=== PATIENT | male | born 1990 | race Caucasian/White ===

== ENCOUNTER 2019-08-26 11:14 | Inpatient (IN) | payer OTHER ==
[~2019-08-26] VITALS: Ht 180.3 cm; Wt 63.0 kg
--- NOTE | 2019-08-26 12:33 | NUR ---
Patient takes no chronic medications
--- NOTE | 2019-08-26 13:06 | NUR ---
PT TO FLOOR WITH AIR CREW. SCOOTED OVER TO BED HIMSELF. RATES PAIN 8\10 GIVEN TORADOL. BEDSIDE XRAY DONE. BOLUS RUNNING.
--- NOTE | 2019-08-26 13:48 | NUR ---
PATIENT RESTING IN BED. VITAL SIGNS AND I&O DONE. CALL LIGHT WITHIN REACH. NO OTHER NEEDS AT THIS TIME
--- NOTE | 2019-08-26 14:30 | NUR ---
PT GIVEN INSTRUCTIONS ON WIPE DOWN. LAB IN TO DRAW CULTURES. PT RATES PAIN 4\10 AFTER TORADOL. SECOND BOLUS RUNNING. AB FINISHED.
--- NOTE | 2019-08-26 14:49 | NUR ---
PT OFF FLOOR WITH ZOIE SLADE.
--- NOTE | 2019-08-26 16:38 | NUR ---
08/26/19 1638 Jered Marie [id number] ARRIVES WITH ETT TUBE IN BUT BREATHING ON HIS OWN,
--- NOTE | 2019-08-26 17:02 | NUR ---
PT TO FLOOR VIA STRETCHER. PT ASLEEP BUT EASILY AROUSABLE. SLIGHTLY CONFUSED. TEARFUL.
--- NOTE | 2019-08-26 18:05 | NUR ---
PATIENT RESTING IN BED. VISITOR IN ROOM. VITAL SIGNS DONE BY RN. I&O DONE. JESANTOO GIVEN. CALL LIGHT WITHIN REACH. NO OTHER NEEDS AT THIS TIME
--- NOTE | 2019-08-26 19:00 | NUR ---
SHIFT REPORT RECEIVED FROM DAYSHIFT ZOIE ULLOA AT BEDSIDE. PT AWAKE AND RESTING IN BED, LAP SITES X3 WITH SCANT DRY SEROSANGUINEOUS DRAINAGE NOTED. PT DENIES NEEDS, CALL LIGHT IN REACH.
--- NOTE | 2019-08-26 19:25 | NUR ---
POST-OP VSS, PT RESTING IN BED. EDUCATION GIVEN ON CURRENT CLEAR LIQUID DIET. NO FURTHER NEEDS, CALL LIGHT IN REACH.
--- NOTE | 2019-08-26 21:15 | NUR ---
ASSESSMENT COMPLETE, SCHEDULED MEDS GIVEN (SEE EMAR). LAP SITES X3 NOTED, SITES UNCHANGED. PT REPORTS TOLERABLE 2-3/10 PAIN, DENIES NAUSEA. SCD'S IN PLACE, DENIES FURTHER NEEDS. CALL LIGHT IN REACH.
--- NOTE | 2019-08-26 22:30 | NUR ---
SCHEDULED IV ABX INFUSING, SITE WNL. JELLO AND CHICKEN BROTH PROVIDED PER REQUEST, PT DENIES NAUSEA. ABLE TO VOID 50MLS AT THIS TIME, WILL MONITOR. GIRLFRIEND IN ROOM, DENIES FURTHER NEEDS, CALL LIGHT IN REACH.
--- NOTE | 2019-08-26 23:09 | NUR ---
PT RESTING IN BED, AWAKE. ATTEMPTING TO VOID VIA URINAL. DENIES NEEDS OR CONCERNS. CALL LIGHT IN REACH.
--- NOTE | 2019-08-27 00:14 | NUR ---
PT VOIDED 150MLS CLEAR YELLOW URINE, IV ABX INFUSING. SITE REMAINS WNL. PT DENIES NEEDS OR CONCERNS. CALL LIGHT IN REACH.
--- NOTE | 2019-08-27 02:03 | NUR ---
ASSESSMENT COMPLETE, NO NEW CHANGES OR CONCERNS. PT AWOKE EASILY TO VOICE, DENIES PAIN AT REST REPORTS TOELRABLE 2/10 PAIN WITH MOVEMENT. SCD'S IN PLACE. VSS, NO CHANGE IN LAP SITES. CPOX IN PLACE. JELLO PROVIDED PER REQUEST. NO FURTHER NEEDS, CALL LIGHT IN REACH.
--- NOTE | 2019-08-27 03:12 | NUR ---
PT AWAKE AND RESTING IN BED, DENIES NEEDS. CALL LIGHT IN REACH.
--- NOTE | 2019-08-27 04:44 | NUR ---
PT AWAKE AND RESTING IN BED, DENIES NEEDS. CALL LIGHT IN REACH.
--- NOTE | 2019-08-27 05:37 | NUR ---
VSS AND I&O'S DONE. PT UP SBA AND WALKED HALF LOOP IN HALLWAY, TOLERATED WELL. PREMEDICATED WITH PRN TORADOL FOR 4/10 PAIN. NO FURTHER NEEDS, CALL LIGHT IN REACH.
--- NOTE | 2019-08-27 06:20 | NUR ---
SCHEDULED IV ABX INFUSING, SEE EMAR. PT DENIES FURTHER NEEDS, IV SITE WNL. CALL LIGHT IN REACH.
--- NOTE | 2019-08-27 08:28 | NUR ---
PT WOKE EASILY FOR ASSESSMENT, DENIES NAUSEA, STATES HE IS PAINFUL WHEN MOVES MUCH BUT COMFORTABLE AT REST, ASKED TO SLEEP A BIT LONGER.
--- NOTE | 2019-08-27 10:06 | NUR ---
PATIENT SLEEPING. GIRLFRIEND IN ROOM. I&O DONE. PATIENT DID NOT VOID OR EAT DURING THIS PERIOD. RN NOTIFIED. CALL LIGHT WITHIN REACH. NO OTHER NEEDS AT THIS TIME
--- NOTE | 2019-08-27 13:17 | NUR ---
PATIENT SLEEPY IN BED. GIRLFRIEND IN ROOM. VITAL SIGNS AND I&O DONE. PATIENT DID NOT VOID DURING THIS PERIOD. RN NOTIFIED. CALL LIGHT WITHIN REACH. NO OTHER NEEDS AT THIS TIME
--- NOTE | 2019-08-27 13:51 | NUR ---
FOLLOW UP TO CREDIT UNION TELLER REPORTING PT WITH NO VOID, SPOKE TO PT AND GIRLFRIEND AND HE STATED HE DID VOID BUT FORGOT TO USE URINAL AFTER WALKING, STATED HE WOULD MAKE SURE HE DID FROM NOW ON. DENIES ANY NEEDS IN GOOD SPIRITS.
--- NOTE | 2019-08-27 14:04 | NUR ---
PT IN DARKENED RM, AWAKES TO VOICE. BASICALLY, PT GAVE ME HAND GESTURE ANSWERS TO MY QUESTIONS. GIRL FRIEND JANA WOULD ANSWER MOSTLY FOR PT. ENLIGHTENED JANA REGARDING VISITATION. PLANNED TO HEAD TO [place] FOR LUNCH. PT HAD NOT EATEN ANYTHING YET. WILL HAVE SOLID FOOD FOR LUNCH-WILL DETERMINE DC. GAVE BLESSING, WILL FOLLLOW NEEDED
--- NOTE | 2019-08-27 15:00 | NUR ---
ATE 50% OF LUNCH, TAKING PO FLUIDS WELL. UP TO BATHROOM INDEP. GIRLFRIEND BACK IN ROOM, WATCHING TV.
[2019-08-27] MEDS ORDERED: METRONIDAZOLE250 MG PO (16:00)
[2019-08-27] MEDS ORDERED: FAMOTIDINE20 MG PO (16:00)
[2019-08-27] MEDS ORDERED: CIPROFLOXACIN500 MG PO (16:00)
[2019-08-27] MEDS ORDERED: MOTRIN IB200 M1 PO (16:01)
[2019-08-27] MEDS ORDERED: MAPAP500 MG PO (16:02)
[2019-08-27] MEDS ORDERED: OXYCODONE HCL5 MG PO (16:03)
--- NOTE | 2019-08-27 16:10 | NUR ---
DR MUNGUIA IN TO SEE PT, DISCHARGE TO HOME ORDERS NOTED.
--- NOTE | 2019-08-27 16:38 | HP ---
[facility] [address], [place] [address] Signed ADMISSION DATE: 08/26/2019 REASON FOR ADMISSION: Acute abdomen. HISTORY OF PRESENT ILLNESS: This 29-year-old white man began having rather severe right-sided abdominal pain approximately 3:00 a.m. He presented to the emergency room at [place], [place], was evaluated by Dr. Dajuan Bella at approximately 11:00 a.m. His pain was severe and accompanied with rising and fair amount of drama. He had associated symptoms of nausea and vomiting several times through the night and any attempt at ingestion of water was met with regurgitation. His evaluation in [place] included a CT scan of the abdomen which showed no sign of acute appendicitis so that was the initial clinical diagnosis. He was noted to have an elevated serum lactate of 6.7 (normal up to 2.2). He was afebrile with a temperature 97.8, heart rate initially of 126, O2 saturations 98% on room air. The patient is extremely thin and the findings on the CT scan are confounded by lack of intraabdominal fat. Evaluation included a urinalysis, which was essentially normal except for 3+ ketones. His serum glucose was 82. He had blood in urine considered 1+. There was no sign of hydroureter on the CT scan. His white cell count was , neutrophils 84. His Chem profile showed elevated sodium of 147, potassium of 4.3, CO2 of 17, glucose of 82, as mentioned, creatinine of 0.9. Liver enzymes normal. Serum calcium elevated slightly at 10.3. Creatine kinase of 459 (normal to 170). He was accepted in transport for surgical evaluation. PAST MEDICAL HISTORY: Notable for a head trauma in the past in 2019, for which CT scan was negative. He denies any chronic or ongoing medical problems. SOCIAL HISTORY: He is single. His girlfriend is in [place] and that is the reason he was in [place] in the nutrition consultant hours. He works at [employer] as a cook. He lives in [place]. He lives alone. Electronically Signed By: ANA MUNGUIA MD 08/27/19 1638 PATIENT NAME: DIETER BULL HISTORY AND PHYSICAL DATE OF : [birth year] REPORT #: [id number] PHYSICIAN: ANA MUNGUIA MD PCP: NO PRIMARY CARE PHYSICIAN REPORT IS CONFIDENTIAL AND NOT TO BE RELEASED WITHOUT AUTHORIZATION [facility] [address], [place] [address] Signed REVIEW OF SYSTEMS: He denies any chest or neck pain. His pain is mostly right-sided and diffuse and severe. He denies any prior history of peptic ulcer disease. PHYSICAL EXAMINATION: GENERAL: Very thin white man, who looks to be in extreme distress. HEENT: He has very dry mucous membranes. Trachea is midline. He has no crepitus of the neck. CHEST: Shows mild tachypnea. ABDOMEN: Quite firm. Tenderness is noted throughout. EXTREMITIES: Show no petechiae, clubbing, or cyanosis. LAB STUDIES: As previously reported. Chest x-ray has been ordered here to assess for free air. ASSESSMENT: The patient has abdominal pain far in excess what I would expect for appendicitis and although, I have not reviewed the CT scan, it has been reported as normal as interpreted by Dr. Madrid. The lack of fat due to his thin body habitus obscures tissue planes making diagnosis even of appendicitis challenging. His symptoms are far more suggestive of perforated ulcer to me, but a chest x-ray is pending and will additionally review the CT scan more fully when loaded into our system. We will initiate fluid infusion to include lactated Ringer's solution immediately and he will be started on meropenem broad-spectrum antibiotic 1 g IV. A lactate level will be checked per protocol for sepsis. Most likely he will require exploration of the abdomen either laparoscopically or otherwise. I discussed all this with the patient and he understands and agrees. Ana Munguia MD JM/MODL /[id number] Electronically Signed By: ANA MUNGUIA MD 08/27/19 1638 PATIENT NAME: DIETER BULL HISTORY AND PHYSICAL DATE OF : [birth year] REPORT #: [id number] PHYSICIAN: ANA MUNGUIA MD PCP: NO PRIMARY CARE PHYSICIAN REPORT IS CONFIDENTIAL AND NOT TO BE RELEASED WITHOUT AUTHORIZATION [facility] [address] [place] [address] Signed cc: Dr. Dajuan Bella Copies: ~ Electronically Signed By: ANA MUNGUIA MD 08/27/19 1638 PATIENT NAME: DIETER BULL HISTORY AND PHYSICAL DATE OF : [birth year] REPORT #: [id number] PHYSICIAN: ANA MUNGUIA MD PCP: NO PRIMARY CARE PHYSICIAN REPORT IS CONFIDENTIAL AND NOT TO BE RELEASED WITHOUT AUTHORIZATION
--- NOTE | 2019-08-27 16:38 | OR ---
[facility] [address], [place] [address] Signed DATE OF OPERATION: 08/26/2019 SURGEON: Ana Munguia MD PREOPERATIVE DIAGNOSES: 1. Acute abdomen, severe abdominal pain and tenderness. 2. Elevated lactic acid, creatine kinase and elevated white count. POSTOPERATIVE DIAGNOSES: 1. No findings in abdomen of acute process; mesenteric adenopathy. 2. Submental inflammatory focus (chin area) without purulence. PROCEDURES: 1. Exploratory laparoscopy. 2. Laparoscopic appendectomy. 3. Laparoscopic mesenteric lymph node biopsy. 4. Laparoscopic lavage with collection of fluid for Gram stain and culture. ANESTHESIA: General endotracheal; Yovany Jose, MECHANICAL SYSTEM TECHNICIAN, and local 10 mL of 0.25% Marcaine with epinephrine. INDICATION: This is a 29-year-old very thin white man is referred emergently by Dr. Bella of [place], [place]. The patient lives in [place], though he was visiting [place] to his girlfriend's house. He began having severe abdominal pain approximately 3 a.m. in the morning. The patient denies any drug use and evaluation in the mid morning by Dr. Bella included findings showing severe peritonitis suggestive of appendicitis. A CT scan was performed, which showed no sign of acute process. Differentiation of the appendix was not forthcoming as he has very thin and has essentially no fat planes. He was noted to have an elevated lactic acid of 6.9 [place] [address]. Liver enzymes were normal. Urinalysis showed 1+ blood. There is no sign of hydroureter on the CT scan. He was transferred and received for consideration of surgical abdomen. He was noted to have nonfocal tenderness and right-sided abdominal pain complaints. His amylase and lipase levels were found to be normal. A lactic acid level was repeated and found to be 2.2. A chest x-ray was performed showing no infiltrate and no sign of free air. He did have improvement of his pain with Toradol intravenously administered and he was administered broad-spectrum antibiotic upon arrival (meropenem). Uncertain as to his diagnosis, I have recommended laparoscopy and probable appendectomy and other indicated procedures. Electronically Signed By: ANA MUNGUIA MD 08/27/19 1638 PATIENT NAME: DIETER BULL OPERATIVE REPORT DATE OF : [birth year] REPORT #: [id number] PHYSICIAN: ANA MUNGUIA MD PCP: NO PRIMARY CARE PHYSICIAN REPORT IS CONFIDENTIAL AND NOT TO BE RELEASED WITHOUT AUTHORIZATION [facility] [address], [place] [address] Signed Additional note, he has an erythematous skin lesion in the submental area without sign of purulence. The patient attributes this to dental problems, though oral examination shows no sign of abscess or tooth caries at least corresponding to this area in the mandible. The patient understands the risks of bleeding, infection, failure of diagnosis, misdiagnosis, and need for other indicated procedures including open surgery and wishes to proceed. FINDINGS: He had no sign of generalized peritonitis, purulence or sign of perforated viscus. There was no sign of small-bowel obstruction. The small bowel was normal from the ligament of Treitz to the terminal ileum. There were mesenteric lymph nodes that were enlarged in the region of the right mesocolon and ileocolic area. A automobile sales representative node was excised. Appendix itself was soft, nondilated, and not acutely inflamed. The right colon, transverse, and sigmoidal areas of colon showed no sign of inflammation. There was no creeping fat associated with the small bowel and retroperitoneum had no evidence of inflammatory focus or hemorrhage. The right kidney was manipulated with an instrument and appeared to have normal contour. The gallbladder was normal though mildly distended. The liver was normal. There was no sign of perforated duodenal ulcer or gastric ulcer. In addition to mesenteric lymph node biopsy and appendectomy, peritoneal lavage was undertaken and fluid obtained for Gram stain and culture. DESCRIPTION OF PROCEDURE: The patient was brought to the operating room and given a general endotracheal anesthetic. He voided immediately prior to operation and therefore, Beckford catheter was not placed. His left arm was placed at the side. Preoperative antibiotic meropenem had been administered already. The abdomen was clipped and prepared with a chlorhexidine solution and draped sterilely. An infraumbilical incision was made and the abdomen entered without problem. He had a thin abdominal wall. Pneumoperitoneum was achieved to a level of 14 mmHg of carbon dioxide gas. Intraabdominal inspection showed no sign of ascites, carcinomatosis, purulence or perforated viscus. The appendix was obscured from view. The cecum appeared normal. There were some adhesions that were normal associated with right colon. The liver appeared normal. The gallbladder was obscured from view. An epigastric 12 mm port was placed and a camera placed to that site. Single hand manipulation allowed for visualization of the appendix which appeared thin, nondilated, and not acutely inflamed. An additional right lower quadrant 5 mm trocar was placed and two-hand manipulation undertaken showing the appendix essentially to be normal. As per preoperative discussion, appendectomy was anticipated whether the Electronically Signed By: ANA MUNGUIA MD 08/27/19 1638 PATIENT NAME: DIETER BULL OPERATIVE REPORT DATE OF : [birth year] REPORT #: [id number] PHYSICIAN: ANA MUNGUIA MD PCP: NO PRIMARY CARE PHYSICIAN REPORT IS CONFIDENTIAL AND NOT TO BE RELEASED WITHOUT AUTHORIZATION [facility] [address], [place] [address] Signed appendix appeared normal or not. The terminal ileum appeared normal as noted by the antimesenteric fat pad of tree. The small bowel was run from the terminal ileum more proximally as far as possible showing no sign of Meckel's diverticulum, creeping fat to suggest inflammatory bowel disease nor sign of perforation, duplication, or other problem. There was some mesenteric adenopathy of the ileocolic mesentery. This was manipulated gently. A lymph node was identified and the peritoneum overlying was incised and the mesenteric lymph node dissected free with meticulous care excising it completely. It measured nearly 2 cm in size. It was extracted through the port and passed for pathology. There was no evidence of perforated viscus in the region of the duodenum, the gallbladder, though mildly distended and not acutely inflamed, liver was normal. There was no sign of perforated gastric or duodenal ulcer. Attention was turned towards the appendix. The appendix was elevated and a window created between the appendix and the cecum with blunt electrocautery dissection. An Endo-SAM stapling device was used to transect the appendix at its base. The mesentery was then transected similarly with good hemostatic effect. The appendix was withdrawn into the trocar sheath and extracted and passed for pathology. Reinspection throughout the abdomen was undertaken showing the mesenteric lymph node biopsy site to be hemostatic. The sigmoid colon was carefully examined and found to have no sign of diverticulitis or inflammation, the pelvis appeared normal otherwise. The retroperitoneum was examined by reflecting the cecum as well as the hepatic flexure. The right kidney was easily palpated with the instruments and appeared to have a normal contour. No sign of retroperitoneal hematoma or abscess. Peritoneal lavage was undertaken with saline solution and excess fluid suctioned free in a portion sent for Gram stain and culture. There were no acute findings other than the mesenteric adenopathy that would account for his pain and no further intervention was deemed warranted at this point. The trocars removed under direct visualization showing no sign of bleeding. The infraumbilical fascial incision was reapproximated with interrupted 0 Vicryl suture. A 10 mL of 0.25% Marcaine with epinephrine injected locally in each trocar site. The skin was closed with interrupted 3-0 Vicryl. Steri-Strips were applied. He was extubated and transferred to the recovery room in good condition having suffered no complications. Sponge, needle, and instrument counts were reported as correct x3. There remains enigmatic as to the source of his severe abdominal pain, elevated creatine kinase, low-grade hematuria, elevated lactic acid level and white count. Nonsurgical conditions this setting might include black spider bite, though that was not reported by the patient or others. We will review this further with the patient. Electronically Signed By: ANA MUNGUIA MD 08/27/19 1638 PATIENT NAME: DIETER BULL OPERATIVE REPORT DATE OF : [birth year] REPORT #: [id number] PHYSICIAN: ANA MUNGUIA MD PCP: NO PRIMARY CARE PHYSICIAN REPORT IS CONFIDENTIAL AND NOT TO BE RELEASED WITHOUT AUTHORIZATION [address] [address] Signed Of note, an erythematous skin lesion in the submental area associated with his avelar, did not appear typical of a spider bite or other bite, but rather a folliculitis and not with apparent abscess formation. Further investigation as the enigmatic source of his signs and symptoms will be forthcoming. MD DEJA Monroy/MODL /[id number] cc: Dr. Dajuan Bella Copies: ~ Electronically Signed By: ANA MUNGUIA MD 08/27/19 1638 PATIENT NAME: DIETER BULL OPERATIVE REPORT DATE OF : [birth year] REPORT #: [id number] PHYSICIAN: ANA MUNGUIA MD PCP: NO PRIMARY CARE PHYSICIAN REPORT IS CONFIDENTIAL AND NOT TO BE RELEASED WITHOUT AUTHORIZATION
--- NOTE | 2019-08-27 16:41 | NUR ---
PATIENT RESTING IN BED. RN AND GIRLFRIEND IN ROOM. THE FINAL VITAL SIGNS WERE OBTAINED PRIOR TO DISCHARGE FROM THE UNIT.
--- NOTE | 2019-08-27 16:46 | NUR ---
DISCHARGE INSTRUCTION GIVEN TO PATIENT, VERBALIZES UNDERSTANDING OF MEDICATIONS AND FOLLOW UP APPOINTMENT, DENIES QUESTIONS OR CONCERNS.
--- NOTE | 2019-08-27 17:19 | NUR ---
IV TAKEN OUT UPON RN REQUEST. CATH IN TACAT AND LOOKED GOOD, RN NOTIFIED.
--- NOTE | 2019-08-31 16:15 | PATH ---
[facility] [address] [place], [place] [address] Signed SPECIMEN(S): A APPENDIX SPECIMEN(S): B LYMPH NODE BIOPSY SPECIMEN SOURCE: A. APPENDIX B. LYMPH NODE BIOPSY CLINICAL HISTORY: Abdominal pain. FINAL PATHOLOGIC DIAGNOSIS: A. Appendix, appendectomy: - Fibrous obliteration of distal appendiceal lumen. - No evidence of appendicitis. B. Mesenteric lymph node, excision: - Benign reactive lymph node with progressive transformation of germinal center. - Negative for malignancy. LJA:NA:cml:vlg:C2NR MICROSCOPIC EXAMINATION: A. Histologic sections of all submitted blocks are examined by light microscopy. These findings, together with the gross examination, support the pathologic diagnosis. B. Immunohistochemical stains are performed (with appropriate reactive controls) and show the following results: CD20: Positive in many follicles showing normal pattern of distribution. CD3: Positive in T lymphocytes showing normal distribution. BCL2: Negative in reactive germinal center, positive in many T lymphocytes. BCL6: Highlights many germinal centers of follicles with normal pattern and distribution. CD15: Highlights scattered leukocytes, negative for large atypical cells. CD30: Positive in scattered immunoblasts, negative for large atypical cells. ANGELA.1: Shows normal distribution of B cells within germinal centers, negative for large atypical cells. NA:vlg GROSS DESCRIPTION: Two specimens are received in two containers, labeled "WK." A. The specimen, labeled "WK," and designated on the requisition "appendix," is received in formalin and consists of PATIENT NAME: DIETER BULL II PATHOLOGY DATE OF : [birth year] REPORT #: [id number] PHYSICIAN: BLAYNE JANE PCP: NO PRIMARY CARE PHYSICIAN REPORT IS CONFIDENTIAL AND NOT TO BE RELEASED WITHOUT AUTHORIZATION [facility] [address], [place] [address] Signed Specimen: Appendix with mesoappendix. Dimensions: 5.6 x 2.5 x 0.7 cm. Serosa: Villalba-burgos to hemorrhagic. Perforation: Not grossly identified. Inking: Staple line is inked black. Mucosa: Villalba-burgos to hemorrhagic. Fecalith: Not grossly identified. Additional: None. Hull Sorter sections are submitted in cassette (A1). B. The specimen, labeled "WK," and designated on the requisition "mesenteric lymph node," is received in formalin and consists of one previously cut/slightly disrupted, pink-burgos possible lymph node (1.7 x 1.4 x 0.5 cm). The specimen is serially sectioned to reveal a pink-burgos to white-burgos cut surface. The specimen is submitted entirely in cassette B1. AC (under the direct supervision of a pathologist) The Gross Description was prepared using a voice recognition system. The report was reviewed for accuracy; however, sound-alike word errors, addition and/or deletions may occur. If there is any question about this report, please contact Client Services. ADDITIONAL NOTES: Immunohistochemical and/or in situ hybridization studies were performed on this case with the appropriate positive controls that react as expected. This test was developed and its performance characteristics determined by [facility]. It has not been cleared or approved by the U.S. Food and Drug Administration. The FDA has determined that such clearance or approval is not necessary. This test is used for clinical purposes. It should not be regarded as investigational or for research. [facility] is certified under the Clinical Laboratory Improvement Amendments of 1988 (CLIA) as qualified to perform high complexity clinical laboratory testing. PERFORMING LABORATORY: The technical component was performed by [facility], [address] [place] [address] (Head Grease Maker: Martha Toussaint MD; CLIA# [id number]). [facility], [address] [address] (CLIA# [id number]). [facility], [address] [place] [address] (Head Grease Maker: Lopez PATIENT NAME: DIETER BULL Luis LEMON PATHOLOGY DATE OF : [birth year] REPORT #: [id number] PHYSICIAN: BLAYNE PATHOLOGY PCP: NO PRIMARY CARE PHYSICIAN REPORT IS CONFIDENTIAL AND NOT TO BE RELEASED WITHOUT AUTHORIZATION [facility] [address] [place], [place] [address] Signed DO Greg; CLIA#: [id number]. Diagnostician: Jose Juan Owen MD Pathologist Diagnostician: Lucina Resendez MD, FACP Pathologist Electronically Signed 08/31/2019 Copies: ~ PATIENT NAME: DIETER BULL II PATHOLOGY DATE OF : [birth year] REPORT #: [id number] PHYSICIAN: BLAYNE PATHOLOGY PCP: NO PRIMARY CARE PHYSICIAN REPORT IS CONFIDENTIAL AND NOT TO BE RELEASED WITHOUT AUTHORIZATION
== END 2019-08-27 17:30 | disposition home or self-care (01) | DRG 804 ==
LOC: MS 11:14
PROVIDERS: ADMIT Surgery
PROC: 07BB4ZX Excision of Mesenteric Lymphatic, Percutaneous Endoscopic Approach, Diagnostic (ICD-10-PCS; 2019-08-26)
PROC: 3E1M38X Irrigation of Peritoneal Cavity using Irrigating Substance, Percutaneous Approach, Diagnostic (ICD-10-PCS; 2019-08-26)
PROC: 0DTJ4ZZ Resection of Appendix, Percutaneous Endoscopic Approach (ICD-10-PCS; principal; 2019-08-26 14:26)
DX: R59.0 Localized enlarged lymph nodes (principal); L73.9 Follicular disorder, unspecified
CPT/HCPCS: 00840; 36415; 71045; 80053; 82150; 82247; 82465; 82550; 83605; 83615; 83690; 84100; 84478; 84550; 85025; 87040; 87070; 87075; 87205; J1100; J1644; J1885; J2001; J2185; J2370; J2405; J2704; J3010; J7121